=== PATIENT | female | born 1945 | race American Indian/Alaskan Native ===

== ENCOUNTER → 2018-04-15 | Emergency (ER) | payer OTHER ==
[~2018-04-15] VITALS: Ht 157.5 cm; Wt 87.1 kg
[~2018-04-15] MED LIST: LOTREL 5-10 MG1 CAP; SYNTHROID50 MCG
== END | disposition home or self-care (01) ==
LOC: ER 02:04
DX: L50.8 Other urticaria (principal)

== ENCOUNTER 2021-04-12 05:36 | Day surgery (SDC) | payer OTHER | END 2021-04-12 13:25 | disposition home or self-care (01) | LOC: CIR.AMB 05:36 | PROVIDERS: ATTEND Colon & Rectal Surgery | DX: K60.2 Anal fissure, unspecified (principal); K62.0 Anal polyp; K64.4 Residual hemorrhoidal skin tags ==

== ENCOUNTER 2021-04-15 11:24 | Inpatient (IN) | payer OTHER ==
[~2021-04-15] VITALS: Ht 157.5 cm; Wt 74.4 kg
[2021-04-15] MEDS ORDERED: SINGULAIR10 MG PO (11:37)
[2021-04-15] MEDS ORDERED: ZYRTEC10 M3 PO (11:37)
[2021-04-15] MEDS ORDERED: GLUMETZA500 MG PO (11:38)
[2021-04-15] MEDS ORDERED: TRULICITY1.5 MG/0.5 SQ (11:38)
[2021-04-15] MEDS ORDERED: AZELASTINE137 MCG/0. (11:39)
[2021-04-15] MEDS ORDERED: LEVALBUTEROL TA15 GM IH (11:39)
--- NOTE | 2021-04-15 11:58 | NUR ---
SE RECIBE PT FEMENINA DE 76 ANOS DE EDAD ALERTA Y ORIENTADA X3 QUIEN REFIERE QUE HOY EN LA MANANA EXPERIMENTA DIARREAS CON [place]. PT REFIERE QUE AH TENIDO 2 Y EN LA PRIMERA TTUVO [place]. SE MONITOREAN S/V Y SE UBICA EN ORQUIDEA 12.
--- NOTE | 2021-04-15 12:19 | NUR ---
PACIENTE EVALAUDA POR EL DR. SPANGLER TRUPTI QUIEN ORDENA TX MEDICO. SE ORIENTA A PACIENTE SOBRE TX REFIER ENTENDER Y SE EJEUCUTAN ORDENES MEDICAS. SE LE ENTREGAN MUESTRAS DE FECAL Y U/A. PENDIENTE CONSULTA CON LA DRA ENCARNACION.
== END 2021-04-21 16:26 | disposition home or self-care (01) | DRG 372 ==
LOC: ER 11:24 → SURH 14:00 → SEC-K 14:00 → SURH 04-16 09:09
PROVIDERS: ADMIT Colon & Rectal Surgery; ATTEND Colon & Rectal Surgery
PROC: 0DJD8ZZ Inspection of Lower Intestinal Tract, Via Natural or Artificial Opening Endoscopic (ICD-10-PCS; principal; 2021-04-20)
DX: A04.72 Enterocolitis due to Clostridium difficile, not specified as recurrent (principal); K92.2 Gastrointestinal hemorrhage, unspecified; K64.8 Other hemorrhoids; K62.0 Anal polyp; K60.2 Anal fissure, unspecified; E03.8 Other specified hypothyroidism; I10 Essential (primary) hypertension; E11.9 Type 2 diabetes mellitus without complications; Z79.4 Long term (current) use of insulin; Z20.822 Contact with and (suspected) exposure to COVID-19

== ENCOUNTER 2023-02-04 11:22 | Emergency (ER) | payer OTHER ==
[~2023-02-04] VITALS: Ht 157.5 cm; Wt 74.4 kg
[~2023-02-04 11:22] MED LIST changes: +AZELASTINE137 MCG/0.; +GLUMETZA500 MG PO; +LEVALBUTEROL TA15 GM IH; +SINGULAIR10 MG PO; +TRULICITY1.5 MG/0.5 SQ; +ZYRTEC10 M3 PO
[2023-02-04] MEDS ORDERED: CRESTOR20 MG (11:43)
[2023-02-04] MEDS ORDERED: FARXIGA10 MG (11:43)
[2023-02-04] MEDS ORDERED: LOTREL 5-10 MG1 CAP (11:43)
[2023-02-04] MEDS ORDERED: PANTOPRAZOLE SO40 MG (11:44)
[2023-02-04] MEDS ORDERED: SYNTHROID50 MCG (11:44)
[2023-02-04] MEDS ORDERED: XALATAN (11:44)
[2023-02-04] MEDS ORDERED: TRULICITY3 MG/0.5 M (11:44)
[2023-02-04] MEDS ORDERED: XIGDUO XR 10 M1 EAC1 (11:44)
[2023-02-04] MEDS ORDERED: PEPCID AC20 MG (11:44)
[2023-02-04] MEDS ORDERED: AZELASTINE137 MCG/0. (11:45)
[2023-02-04] MEDS ORDERED: PROCTOSOL-HC28.35 GM (11:45)
== END 2023-02-04 18:56 ==
LOC: ER 11:22
DX: M79.604 Pain in right leg (principal)

== ENCOUNTER 2023-11-27 04:57 | Emergency (ER) | payer OTHER ==
[~2023-11-27] VITALS: Ht 157.5 cm; Wt 66.2 kg
[~2023-11-27 04:57] MED LIST changes: +CRESTOR20 MG; +FARXIGA10 MG; +PANTOPRAZOLE SO40 MG; +PEPCID AC20 MG; +PROCTOSOL-HC28.35 GM; +TRULICITY3 MG/0.5 M; +XALATAN; +XIGDUO XR 10 M1 EAC1
[2023-11-27] MEDS ORDERED: GLYXAMBI 10 MG1 EACH PO (05:11)
[2023-11-27] MEDS ORDERED: OZEMPIC1 MG/0.71 SQ (05:12)
[2023-11-27] MEDS ORDERED: GLIMEPIRIDE2 M1 PO (05:13)
[2023-11-27] MEDS ORDERED: MEPERIDINE HCL/PF 25 MG/ML VIAL IM STA (06:15)
[2023-11-27] MEDS ORDERED: PROMETHAZINE HCL 50 MG/ML AMPUL IM STA (06:15)
[2023-11-27] MEDS ORDERED: FAMOTIDINE/PF 20 MG/2 ML VIAL IV PUSH STA (06:16)
[2023-11-27] MEDS ORDERED: 0.9 % SODIUM CHLORIDE 1,000 ML IV ONE (06:30)
[2023-11-27 07:01] LABS: HEMATOCRIT 42.9 % (36.0-45.00); HEMOGLOBIN 14.9 g/dL (12.0-15.00); MEAN CELL VOLUME 93.6 fL (80.00-100.00); MEAN CORPUSCULAR HEMOGLOBIN 32.4 pg (27.00-32.0); MEAN CORPUSCULAR HGB CONC 34.6 g/dl (32.0-36.0); PLATELET COUNT 290 K/uL (150-450); RED BLOOD COUNT 4.59 M/uL (4.00-6.00); RED CELL DISTRIBUTION WIDTH 13.6 % (11.5-14.5)
[2023-11-27 07:34] LABS: INR 0.94; PARTIAL THROMBOPLASTIN TIME 24.4 SECONDS (22.0-34.0); PROTHROMBIN TIME 10.3 SECONDS (9.0-11.5)
[2023-11-27 07:41] LABS: ALBUMIN 4.2 gm/dL (3.4-5.0); BILIRUBIN TOTAL 0.48 mg/dL (0.3-1.2); BILIRUBIN,CONJUGATED 0.14 mg/dL (0.0-0.2); BILIRUBIN,UNCONJUGATED 0.34 mg/dL (0.0-0.6); CALCIUM 10.1 mg/dL (8.5-10.1); CREATININE SERUM 0.8 mg/dL (0.55-1.02); GFR 69.37; GLOBULINA 4.2 G/DL (2.4-3.5); POTASSIUM 4.88 mEq/L (3.5-5.1); TOTAL PROTEIN 8.4 gm/dL (6.4-8.2)
[2023-11-27 08:07] LABS: PH,URINE 5.5 (5.0-8.0); URINE APPEARANCE Clear; URINE BILIRRUBIN Negative (NEGATIVE); URINE BLOOD Negative; URINE COLOR Yellow; URINE KETONE 15 (NEGATIVE); URINE LEUKOCYTE Negative; URINE NITRATE Negative; URINE PROTEIN Negative (NEGATIVE); URINE UROBILINOGEN 0.2 E.U./dl
[2023-11-27 08:08] LABS: URINE BACTERIA 26.4 uL (0.0-1933); URINE EPITHELIAL CELLS 2.3 uL (0.0-38.8); URINE WBC 10.9 uL (0.0-23.2)
[2023-11-27 08:39] LABS: URINE GLUCOSE >=1000 MG/DL (NEGATIVE); URINE RBC 1.5 uL (0.0-20.8)
== END 2023-11-27 12:16 | disposition home or self-care (01) ==
LOC: ER 04:59
PROVIDERS: General Practice
DX: R10.11 Right upper quadrant pain (principal); E11.9 Type 2 diabetes mellitus without complications; Z79.84 Long term (current) use of oral hypoglycemic drugs; I10 Essential (primary) hypertension; E03.9 Hypothyroidism, unspecified; Z88.8 Allergy status to other drugs, medicaments and biological substances

== ENCOUNTER → 2024-01-27 | Emergency (ER) | payer OTHER ==
[~2024-01-27] MED LIST changes: +GLIMEPIRIDE2 M1 PO; +GLYXAMBI 10 MG1 EACH PO; +OZEMPIC1 MG/0.71 SQ
== END | disposition left against medical advice (07) ==
LOC: ER 19:59
DX: Z53.21 Procedure and treatment not carried out due to patient leaving prior to being seen by health care provider (principal)

== ENCOUNTER 2024-06-08 15:35 | Emergency (ER) | payer OTHER ==
[~2024-06-08] VITALS: Ht 162.6 cm; Wt 63.5 kg
[2024-06-08] MEDS ORDERED: SYNJARDY XR 121 EACH PO (16:56)
[2024-06-08] MEDS ORDERED: FAMOTIDINE40 MG PO (16:56)
[2024-06-08] MEDS ORDERED: MOUNJARO5 MG/0.5 M SQ (16:56)
[2024-06-08] MEDS ORDERED: MIRABEGRON ER25 MG PO (16:56)
[2024-06-08] MEDS ORDERED: BYDUREON B2 MG/0.85 SQ (16:57)
[2024-06-08] MEDS ORDERED: METFORMIN HCL500 M1 PO (16:57)
[2024-06-08] MEDS ORDERED: ROSUVASTATIN CA20 MG PO (16:57)
[2024-06-08] MEDS ORDERED: METHYLPREDNISOLONE SOD SUCC 125 MG VIAL IV ONE (18:00)
[2024-06-08] MEDS ORDERED: IPRATROPIUM BROMIDE 0.5 MG/2.5 ML AMPUL.NEB IH ONE (18:00)
[2024-06-08] MEDS ORDERED: GUAIFENESIN/DEXTROMETHORPHAN 100MG/10ML BLIST.PACK PO ONE (18:00)
[2024-06-08] MEDS ORDERED: LEVALBUTEROL HCL 1.25 MG/3 ML SOLUTION IH ONE (18:00)
[2024-06-08] MEDS ORDERED: METHYLPREDNISOLONE SOD SUCC 125 MG VIAL ONE (18:09)
[2024-06-08 18:39] LABS: HEMOGLOBIN 15.2 g/dL (12.0-15.00); MEAN CELL VOLUME 94.4 fL (80.00-100.00); MEAN CORPUSCULAR HEMOGLOBIN 31.9 pg (27.00-32.0); MEAN CORPUSCULAR HGB CONC 33.7 g/dl (32.0-36.0); PLATELET COUNT 350 K/uL (150-450); RED BLOOD COUNT 4.76 M/uL (4.00-6.00); RED CELL DISTRIBUTION WIDTH 13.7 % (11.5-14.5)
[2024-06-08 19:23] LABS: BILIRUBIN TOTAL 0.47 mg/dL (0.3-1.2); CALCIUM 9.7 mg/dL (8.5-10.1); CREATININE SERUM 0.72 mg/dL (0.55-1.02); GFR 78.14; GLOBULINA 4.1 G/DL (2.4-3.5); POTASSIUM 4.46 mEq/L (3.5-5.1); TOTAL PROTEIN 8.1 gm/dL (6.4-8.2)
[2024-06-08 20:33] LABS: COVID-19 AG NEGATIVE (NEGATIVE)
[2024-06-08 20:37] LABS: INFLUENZA A AG NEGATIVE (NEGATIVE)
[2024-06-08] MEDS ORDERED: BUDESONIDE0.5 MG/2 M IH (21:00)
[2024-06-08] MEDS ORDERED: ZITHROMAX500 MG PO (21:00)
[2024-06-08] MEDS ORDERED: GILTUSS DIABET118 ML PO (21:00)
[2024-06-08] MEDS ORDERED: IPRATROPIU0.2 MG/1 M IH (21:00)
[2024-06-08] MEDS ORDERED: XOPENEX CO1.25 MG/0. IH (21:00)
== END 2024-06-08 21:19 | disposition home or self-care (01) ==
LOC: ER 15:37
PROVIDERS: General Practice
DX: J45.909 Unspecified asthma, uncomplicated (principal); Z88.8 Allergy status to other drugs, medicaments and biological substances; E03.8 Other specified hypothyroidism; I10 Essential (primary) hypertension; E78.49 Other hyperlipidemia; Z20.822 Contact with and (suspected) exposure to COVID-19; E11.9 Type 2 diabetes mellitus without complications; Z79.84 Long term (current) use of oral hypoglycemic drugs
CPT/HCPCS: 36415; 71045; 94640; 96365; 99284; J3490